=== PATIENT | female | born 1945 | race Caucasian/White ===

== ENCOUNTER → 2016-07-12 | Outpatient (CLI) | payer OTHER, MEDICARE ==
[~2016-07-12] MED LIST: 3N1 COMMODE MC; ALEN70TA30 PO; ASPI-781 PO; CYCL-319 PO; FEXO180T61 PO; GABA100C14 PO; GABA300C16 PO; HYDR-762 PO; SOLI10TA5 PO; TEMA15CA PO; WALK1EAC23 MC
--- NOTE | 2016-07-13 05:51 | HKNOTE ---
DATE OF SERVICE: 07/12/2016 The patient comes in with her . In the past, she has had multiple squamous skin cancers of h er lower extremities. She has had multiple Mohs procedures. When I saw her last, these essentially amounted to a large number of skin ulcers. Secondly, she had an area of skin ulceration near the r ight lower ankle. The patient has psoriasis. When she was here last, we could not discuss the poss ibility of revising her right hip because of these open wounds. These wounds have now completely healed. The patient continues to get episodes of itching "all over my body." She believes that these episod es are due to cobalt and chromium. Recently she has had urine tests for cobalt and chromium. Urine was found to be 4.3 on the chromium and 5.2 on the cobalt. She feels that these are more significa nt findings than the blood tests for cobalt and chromium. Note that the last time this patient had cobalt and chromium levels was on 03/23/2015 and the cobal t was 2.0 and the chromium was 3.0. The patient now complains of some pain in her right groin. She walks without a cane. She has minim al pain in the right groin. She has had a great deal of problems with her lower back. She saw Dr. Dee who gave her "nerve blocks and nerve ablation" which has given her tremendous improvement. She notes that she is due to see Dr. Dee tomorrow for possible further treatments. She stat es that most of her pain went away after the nerve blocks and the ablation therapy. PHYSICAL EXAMINATION: The patient walks without a walking aid. She has a shoe lift of approximatel y a half inch on the right side. She also has a lumbar support brace which was given by Dr. Carmelina hollingsworth. VITAL SIGNS: Height 5 feet 1, weight 132 pounds, blood pressure 195/100, temperature 98.4. EXTREMITIES: Her legs were inspected. She is asked to take all her dressings and tapes off her leg s. There is no evidence of any ulcers or open wounds anywhere on the right leg (or the left leg). RIGHT HIP: A full range of motion without pain. 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 There is protrusion of the socket into the pelvis. These pictures were compared with those taken in 2015 and there does not appear to be any change. The patient and her were advised that in my opinion we should probably consider switching ou t the socket. I do believe that given enough time, this socket will come loose if it is not already loose. There is a chance that this socket may break through into the pelvis. MANAGEMENT: 1. The patient is being sent for a [place] CAT scan of the right hip. 2. She will be referred to Dr. Campoverde for consideration of full revision of this acetabular socket and lengthening of her right leg at the same time. Dictated By: LEVON PATIÑO/KAYLEEN Conf#: [id number] DID#: [id number]
--- NOTE | 2016-07-13 09:38 | RADRPT ---
PROCEDURE: XR bilateral hips. CLINICAL INDICATION: Hip pain TECHNIQUE: AP pelvis/lateral views of both hips available for review. COMPARISON: 10/05/2015 FINDINGS: There are bilateral total hip replacements. There is no change in the protrusion of the right acetab ular component. There is otherwise normal mineralization, architecture and alignment. There is no evidence of loose constantino of the prosthesis. There is no evidence of hardware failure. No fractures, dislocation or osseo us lesions are identified. The joints are unremarkable. There are normal soft tissues. IMPRESSION: Bilateral total hip replacements. No change in protrusion of right acetabular component. RPTAT: [facility] .Singh Dong MD, MD Date Time Electronically viewed and signed by .Singh Dong MD, on 07/13/2016 09:37 .B/
== END | disposition home or self-care (01) ==
LOC: HKI 15:35
DX: M25.551 Pain in right hip (principal); L40.9 Psoriasis, unspecified
CPT/HCPCS: 73522; G0463